=== PATIENT | male | born 1980 | race Caucasian/White ===

== ENCOUNTER 2019-06-16 21:57 | Emergency (ER) | payer OTHER, SELFPAY ==
[2019-06-16 22:02] VITALS: BP 135/84; PULSE 97; RESP 17; TEMP 37.2; O2SAT 100
--- NOTE | 2019-06-16 22:10 | ED.GENADULT ---
HPI - General Adult General Chief complaint: Anxiety Stated complaint: panic attack Time Seen by Provider: 06/16/19 22:10 Source: patient Mode of arrival: ambulatory Limitations: no limitations History of Present Illness HPI narrative: Patient is a 38-year-old male who presents for evaluation anxiety, panic, also reporting that he is hearing thoughts of kill. Patient states these thoughts began approximately 1:50 PM this afternoon, and is almost as if his mind is playing a game on him he states. He states that he has no intent to harm himself or harm others, but the thought will go on his mind to kill, although it does not give him any direction. Patient states that he does not want to hurt or harm anyone and does not want to kill anybody. Patient has a history of anxiety over the past month that has been worsening since the coronavirus pandemic. He states that he lives at home with his and feels safe at home. He has good relationship with his parents who live across the street. Patient states he used to struggle with alcohol abuse and was a daily binge drinker, but since the time of quarantine has had approximately 5 episodes of binge drinking and no longer daily drinks. Patient has no history of diagnosed mental illness such as schizophrenia, anxiety or bipolar disorder. Patient denies hearing any voices. He states he hears his own voice but does not hear voices of others. No visual hallucinations. Patient reports daily marijuana use. Usually that calm some, patient states that this evening it promotes more anxiety. Pt denies access to fire arms. Related Data Home Medications Medication Instructions Recorded Confirmed No Home Medications 06/16/19 06/16/19 Allergies Allergy/AdvReac Type Severity Reaction Status Date / Time Penicillins Allergy Hives Verified 06/16/19 22:09 Review of Systems Review of Systems: Narrative: CONSTITUTIONAL: Denies fever, chills, or sweats. EYES: Denies visual changes, redness, or discharge. ENT: Denies rhinorrhea, congestion, sore throat, or otalgia. CARDIOVASCULAR: Denies chest pain, reports palpitations RESPIRATORY: Denies cough or dyspnea. GASTROINTESTINAL: Denies abdominal pain, nausea, vomiting, or diarrhea. SKIN: Denies rash or itching. MUSCULOSKELETAL: Denies back pain, joint pain, or myalgia. NEUROLOGIC: Denies headache, numbness, or weakness. PSYCHIATRIC: Reports anxiety and depression PMFSH Past Medical History Medical History (Updated 06/17/19 @ 02:04 by Shira Fine MD) Anxiety Depression Surgical History Surgical History (Updated 06/16/19 @ 22:28 by Shira Fine MD) No pertinent past surgical history Social History Social History (Updated 06/16/19 @ 22:29 by Shira Fine MD) Smoking status: Never smoker Alcohol intake: current Drinks per week: 5 Substance use: current Substance use type: marijuana Living arrangements: with family Occupation/Education: occupation Additional occupation/education comments: processor Gender identity (if verbalized by the patient): Male Exam Narrative: Exam Narrative: GENERAL: Awake, alert, conversant, anxious appearing, tearful HEAD: Normocephalic, atraumatic. EYES: PERRLA and EOMI. ENT: Nares clear, no rhinorrhea or epistaxis. Mucous membranes moist. NECK: Supple. CHEST: No respiratory distress, breathing even and non labored HEART: Regular rate, sinus rhythm ABDOMEN:Non distended, non tender EXTREMITIES: Normal range of motion. No edema. SKIN: Warm, dry, no rash. NEURO:No focal deficits. Alert and oriented x3 Psych: Denies homicidal or suicidal ideation, denies auditory or visual hallucinations, patient states he is hearing his own voice Course Vital Signs Vital signs: Vital Signs Temperature 37.2 C 06/16/19 22:02 Pulse Rate 97 06/16/19 22:02 Respiratory Rate 17 06/16/19 22:02 Blood Pressure 135/84 06/16/19 22:02 Pulse Oximetry 100 06/16/19 22:02 Sri
--- NOTE | 2019-06-16 22:25 | ECG_ITS ---
Measurements Intervals [place] Rate: 87 P: 63 TX: 158 QRS: 81 QRSD: 91 T: 68 QT: 340 QTc: 409 Interpretive Statements SINUS RHYTHM MINIMAL Q WAVES- INFERIOR LEADS BORDERLINE ECG Electronically Signed On 06-17-2019 8:07:29 CDT by Quoc Abel D.O.
[2019-06-16] MEDS: LORAZEPAM 1 MG TABLET 0.5 MG PO (22:35)
[2019-06-16 22:37] LABS: Basophils Absolute Auto 0.1 K/mm3 (0.0-0.1); Basophils Percent Auto 1.2 % (0.2-1.2); Eosinophils Absolute Auto 0.1 K/mm3 (0-0.3); Eosinophils Percent Auto 0.9 % (0-4.4); Hematocrit 39.2 % (42.0-52.0); Hemoglobin 12.6 g/dL (14.0-18.0); Immature Granulocyte Absolute 0.01 K/mm3 (0.00-0.031); Immature Granulocyte Percent A 0.2 % (0-0.5); Lymphocytes Absolute Auto 2.06 K/mm3 (0.9-3.2); Mean Corpuscular HGB Conc 32.1 g/dl (32-36); Mean Corpuscular Hemoglobin 20.8 pg (26-34); Mean Corpuscular Volume 64.8 fl (80-100); Mean Platelet Volume 10.2 fl (7.4-10.4); Monocytes Absolute Auto 0.5 K/mm3 (0.1-0.6); Monocytes Percent Auto 7.3 % (2.6-8.5); Neutrophils Absolute Auto 3.8 K/mm3 (1.3-6.7); Neutrophils Percent Auto 58.4 % (45.5-73.1); Platelet Count Result 276 k/mm3 (150-375); Red Blood Count 6.05 M/mm3 (4.6-6.20); Red Cell Distribution Width 15.7 % (11.5-14.5); White Blood Count 6.4 K/mm3 (4.5-10.0)
[2019-06-16 22:49] LABS: Acetaminophen < 10 ug/mL (10-30); Blood Urea Nitrogen 8 mg/dL (9-20); Carbon Dioxide 26 mmol/L (22-30); Chloride 101 mmol/L (98-107); Estimated CRCL calculation 120 ml/min; Estimated Glomerular Filt Rate > 60; Ethanol < 10 mg/dL (<10); Glucose 102 mg/dL (75-110); Potassium 3.8 mmol/L (3.4-5.0); Salicylate < 1.0 mg/dL (2-20); Sodium 138 mmol/L (137-145)
[2019-06-16 23:17] LABS: Add Urine Microscopic? YES; Appearance Urine Clear (Clear); Bilirubin Urine Negative (Negative); Blood Urine Negative (Negative); Color Urine Straw (Yellow); Glucose Urine UA Negative (Negative); Ketones Urine 1+ mg/dL (Negative); Leukocyte Esterase Ur Negative LEU/UL (Negative); Nitrate Urine Negative (Negative); Protein Urine Negative (Negative); Specific Grav Ur 1.008 (1.001-1.035); Squamous Epithelial Cell Urine Rare /hpf (Few); Urobilinogen Urine Negative mg/dL (<2.0); WBC Urine 0-3 /hpf
[2019-06-16 23:35] LABS: Amphetamine Screen Urine Negative (Negative); Barbiturate Screen Urine Negative (Negative); Benzodiazepines Screen Urine Negative (Negative); Cannabinoid Screen Urine Negative (Negative); Cocaine Screen Urine Negative (Negative); Methadone Screen Urine Negative (Negative); Opiate Screen Urine Negative (Negative); Phencyclidine Screen Urine Negative (Negative)
[2019-06-16 23:55] VITALS: BP 125/84; PULSE 81; RESP 18; O2SAT 99
--- NOTE | 2019-06-17 00:28 | PC.NURSE ---
Crisis called at [phone] no answer left message requesting a call back for a Pt here in the ER.
--- NOTE | 2019-06-17 00:34 | PC.NURSE ---
This nurse spoke with Moo from [place] at [phone] regarding Pts condition, Moo stated someone would be here to evaluate Pt in less than 1hr.
[2019-06-17 01:22] VITALS: BP 124/83; PULSE 99; O2SAT 100
--- NOTE | 2019-06-17 01:22 | PC.NURSE ---
S.I Checklist completed by this nurse and placed in Pt's chart.
--- NOTE | 2019-06-17 01:25 | PC.NURSE ---
Original SI checklist placed in Phyl's mailbox, copy placed in chart.
--- NOTE | 2019-06-17 01:55 | PC.NURSE ---
Mother in room with Pt entire time, stated no need for a sitter. Pt has been calm and cooperative during his visit.
--- NOTE | 2019-06-17 02:04 | PC.NURSE ---
Pt asked if he could have another pill like earlier due to feeling anxious now that he's going home. MD notified of Pt's feelings and his request for another Ativan pill. is currently in room speaking with Pt.
[2019-06-17] MEDS: LORAZEPAM 0.5 MG TABLET PO (02:09)
[2019-06-17 02:10] VITALS: BP 118/77; RESP 23; O2SAT 99
--- NOTE | 2019-06-17 02:22 | PC.NURSE ---
Pt states the Ativan ordered helped a ton and hes glad he came in for help because talking it out made him feel better and more at ease. Pt now leaving with mom and states staying with her for the night.
== END 2019-06-17 02:12 | disposition home or self-care (01) ==
PROVIDERS: Emergency Provider Emergency Medicine; PCP Emergency Medicine
DX: F41.9 Anxiety disorder, unspecified (principal); R94.31 Abnormal electrocardiogram [ECG] [EKG]
CPT/HCPCS: 36415; 80048; 80307; 81001; 84443; 85025; 93005; 99284; A9270